=== PATIENT | male | born 1970 | race African-American/Black ===

== ENCOUNTER 2017-11-13 08:46 | Emergency (ER) | payer MEDICARE, MEDICAID ==
[~2017-11-13] VITALS: Ht 170.2 cm; Wt 65.0 kg
[2017-11-13] MEDS ORDERED: ALBUTEROL (0.083%) 2.5MG/3ML NEB HHN STA (09:47)
[2017-11-13] MEDS ORDERED: METHYLPREDNISOLONE SOD SUCC 125 MG/2 ML VIAL IV STA (09:47)
[2017-11-13] MEDS ORDERED: IPRATROPIUM BROMIDE (0.02%) 0.5MG/2.5ML NEB HHN STA (09:47)
[2017-11-13 10:07] LABS: BASOPHILS % 0.5 % (0.0-2.0); EOSINOPHILS % 12.7 % (0.0-5.0); HEMATOCRIT. 44.9 % (42.0-52.0); HEMOGLOBIN. 15.2 g/dL (14.0-18.0); MEAN CORPUSCULAR HEMOGLOBIN 26.9 pg (28.0-32.0); MEAN CORPUSCULAR VOLUME 79.6 fL (80.0-94.0); MEAN PLATELET VOLUME 8.3 fl (7.4-10.4); NEUTROPHILS % 64.8 % (40.0-76.0); PLATELET 246 x1000/uL (130-400); RED BLOOD CELL COUNT 5.65 mill/uL (4.7-6.1); RED CELL DISTRIBUTION WIDTH 14.6 % (11.6-14.6)
[2017-11-13] MEDS ORDERED: SODIUM CHLORIDE 0.9% 1,000 ML IV ONE (10:07)
[2017-11-13 10:13] LABS: CHLORIDE 106 mEq/L (98-107)
[2017-11-13 10:16] LABS: INR 1.1; PARTIAL THROMBOPLASTIN TIME 28.7 sec (23.4-31.0); PROTHROMBIN TIME 11.5 sec (9.4-11.6)
[2017-11-13] MEDS ORDERED: LEVOFLOXACIN 500MG PREMIX 100 ML IV ONE (11:15)
[2017-11-13 16:25] VITALS: BP 126/77
== END 2017-11-13 17:22 | disposition home or self-care (01) ==
LOC: ER 09:01 → EDBEDREQ 11:11 → CANBEDREQ 16:25 → ER 17:22
DX: J20.9 Acute bronchitis, unspecified (principal); G31.84 Mild cognitive impairment of uncertain or unknown etiology; F79 Unspecified intellectual disabilities; R47.01 Aphasia; H54.8 Legal blindness, as defined in USA
CPT/HCPCS: 36415; 71045; 80053; 83690; 83880; 84484; 85025; 85610; 85730; 93005; 93970; 94640; 96365; 96375; 99291; J1956; J2930; J7030; J7611